=== PATIENT | male | born 1995 | race African-American/Black ===

== ENCOUNTER 2023-08-17 10:04 | Emergency (ER) | payer OTHER ==
[~2023-08-17] VITALS: Ht 175.3 cm; Wt 63.6 kg
[~2023-08-17 10:04] MED LIST: PREDNISONE20 MG PO; PROAIR HFA0.09 MG/AC IH; SYMJEPI0.3 MG/0.3 IJ
[2023-08-17 10:08] VITALS: TEMP 97.4
[2023-08-17] MEDS ORDERED: PROAIR HFA0.09 MG/AC IH (10:45)
[2023-08-17] MEDS ORDERED: PREDNISONE50 MG PO (11:03)
[2023-08-17 11:15] VITALS: BP 123/79; PULSE 121
== END 2023-08-17 11:14 | disposition home or self-care (01) ==
LOC: COL.ER 10:04
DX: J45.901 Unspecified asthma with (acute) exacerbation (principal); F17.290 Nicotine dependence, other tobacco product, uncomplicated; Z20.822 Contact with and (suspected) exposure to COVID-19; Z79.899 Other long term (current) drug therapy; Z28.310 Unvaccinated for COVID-19
CPT/HCPCS: J7512

== ENCOUNTER 2023-09-29 00:41 | Emergency (ER) | payer OTHER ==
[~2023-09-29] VITALS: Ht 175.3 cm; Wt 63.6 kg
[~2023-09-29 00:41] MED LIST changes: +PREDNISONE50 MG PO; +PROVENTIL0.09 MG/A1 IH
[2023-09-29 00:46] VITALS: TEMP 97.9
[2023-09-29] MEDS ORDERED: predniSONE 50 MG,predniSONE 10 MG PO ONE (01:00)
[2023-09-29] MEDS ORDERED: Albuterol/Ipratropium 3 MG-0.5 MG/3 ML Neb Soln IH SCH (01:00)
[2023-09-29] MEDS ORDERED: PROAIR RES117 MCG/Ac IH (01:01)
[2023-09-29] MEDS ORDERED: NEB MC (01:01)
[2023-09-29] MEDS ORDERED: ALBUTEROL0.83 MG/ML IH (01:01)
[2023-09-29] MEDS ORDERED: PREDNISONE20 MG PO (01:37)
[2023-09-29 02:00] VITALS: BP 100/79; PULSE 72
[2023-09-29] MEDS ORDERED: Albuterol 90 MCG/PUFF 8 GM MDI IH ONE (02:00)
== END 2023-09-29 02:15 | disposition home or self-care (01) ==
LOC: COL.ER 00:41
DX: J45.901 Unspecified asthma with (acute) exacerbation (principal)
CPT/HCPCS: J7512